=== PATIENT | male | born 1985 | race Caucasian/White ===

== ENCOUNTER 2025-02-22 14:24 | Outpatient (CLI) | payer BC, SELFPAY | END 2025-02-22 14:25 | disposition home or self-care (01) | LOC: AMB 02-24 16:17 | PROVIDERS: Visit Provider Internal Medicine | DX: R06.09 Other forms of dyspnea (principal); T50.905A Adverse effect of unspecified drugs, medicaments and biological substances, initial encounter; Y92.009 Unspecified place in unspecified non-institutional (private) residence as the place of occurrence of the external cause | CPT/HCPCS: A0425; A0427 ==